=== PATIENT | female | born 1985 | race Caucasian/White ===

== ENCOUNTER 2020-08-25 11:43 | Emergency (ER) | payer SELFPAY ==
[~2020-08-25] VITALS: Ht 162.6 cm; Wt 81.6 kg
[2020-08-25 13:50] LABS: BASOPHILS # (AUTO) 0.1 (0.0-0.1); BASOPHILS % 0.9 % (0.0-1.0); EOSINOPHILS # (AUTO) 0.1 (0.0-0.4); EOSINOPHILS % 0.5 % (0.0-6.0); HEMATOCRIT 39.5 % (34.2-44.1); HEMOGLOBIN 13.3 g/dL (12.0-16.0); LYMPHOCYTES # (AUTO) 2.3 (1.0-3.2); LYMPHOCYTES % 18.4 % (18.0-39.1); MEAN CORPUSCULAR HEMOGLOBIN 31.1 pg (28-32); MEAN CORPUSCULAR HGB CONC 33.7 g/dL (31-35); MEAN CORPUSCULAR VOLUME 92.5 fL (81-99); MONOCYTES # (AUTO) 1.4 (0.2-0.8); NEUTROPHILS # (AUTO) 8.4 (2.1-6.9); NEUTROPHILS % 68.6 % (38.7-80.0); PLATELET COUNT 315 x10e3/uL (140-360); RED BLOOD COUNT 4.27 x10e6/uL (3.6-5.1); RED CELL DISTRIBUTION WIDTH 14.6 % (11.7-14.4)
[2020-08-25 13:57] LABS: AMPHETAMINES SCREEN,URINE NEGATIVE (NEGATIVE); BENZODIAZEPINES SCREEN,URINE NEGATIVE (NEGATIVE); CLARITY,URINE CLEAR (CLEAR); COLOR,URINE YELLOW (YELLOW); KETONES,URINE 2+ (NEGATIVE); LEUKOCYTE ESTERASE ,URINE NEGATIVE (NEGATIVE); NITRITE,URINE NEGATIVE (NEGATIVE); PHENCYCLIDINE SCREEN,URINE NEGATIVE (NEGATIVE); PREGNANCY TEST, URINE NEGATIVE (NEGATIVE); PROTEIN,URINE DIPSTICK 1+ (NEGATIVE)
[2020-08-25 14:02] LABS: BACTERIA,URINE RARE /HPF; MUCUS,URINE MANY (RARE); RBC,URINE 0-5 /HPF (0-5)
[2020-08-25 14:14] LABS: SALICYLATE < 5.0 mg/dL (0-30)
[2020-08-25 14:30] LABS: ALANINE AMINOTRANSFERASE 35 IU/L (0-55); ALBUMIN 3.7 g/dL (3.5-5.0); ALBUMIN/GLOBULIN RATIO 1.1 (0.8-2.0); ALKALINE PHOSPHATASE 75 IU/L (40-150); ANION GAP 17.9 mmol/L (8-16); BLOOD UREA NITROGEN 10 mg/dL (7-26); BUN/CREATININE RATIO 15 (6-25); CALCIUM 8.4 mg/dL (8.4-10.2); CARBON DIOXIDE 24 mmol/L (22-29); CHLORIDE 100 mmol/L (98-107); CREATININE, SERUM 0.68 mg/dL (0.57-1.11); EST GLOMERULAR FILTRATION RATE > 60 ML/MIN (60-); GLUCOSE 75 mg/dL (74-118); SODIUM 139 mmol/L (136-145)
[2020-08-25 14:42] LABS: POTASSIUM 2.9 mmol/L (3.5-5.1)
[2020-08-25 15:16] LABS: THYROID STIMULATING HORMONE 0.632 uIU/mL (0.350-4.940)
[2020-08-25] MEDS ORDERED: POTASSIUM CHLORIDE 20 MEQ TAB CR PO STA (15:18)
== END 2020-08-25 20:33 | disposition home or self-care (01) ==
LOC: ER 12:38
DX: F12.929 Cannabis use, unspecified with intoxication, unspecified (principal); F17.210 Nicotine dependence, cigarettes, uncomplicated
CPT/HCPCS: 36415; 80053; 80307; 80320; 80329; 81001; 81025; 84443; 85025; 99284